=== PATIENT | female | born 2000 | race American Indian/Alaskan Native ===

== ENCOUNTER → 2021-08-09 14:13 | Outpatient (BNVA) | payer OTHER, SELFPAY | PROVIDERS: PCP Nurse Practitioner Family; Visit Provider Nurse Practitioner Family | DX: N39.0 Urinary tract infection, site not specified (principal); E66.9 Obesity, unspecified; F33.9 Major depressive disorder, recurrent, unspecified; J45.909 Unspecified asthma, uncomplicated; Z76.89 Persons encountering health services in other specified circumstances | CPT/HCPCS: 80053; 80061; 84443 ==

== ENCOUNTER → 2021-08-26 11:27 | Outpatient (BNVA) | payer OTHER, SELFPAY | PROVIDERS: PCP Nurse Practitioner Family; Visit Provider Nurse Practitioner Family | DX: F33.9 Major depressive disorder, recurrent, unspecified (principal); E66.9 Obesity, unspecified | CPT/HCPCS: 80053; 80061; 84443 ==

== ENCOUNTER → 2021-09-14 10:23 | Outpatient (BNVA) | payer OTHER, SELFPAY | PROVIDERS: PCP Nurse Practitioner Family; Visit Provider Nurse Practitioner Family | DX: Z32.00 Encounter for pregnancy test, result unknown (principal); N39.0 Urinary tract infection, site not specified; N91.1 Secondary amenorrhea; Z30.42 Encounter for surveillance of injectable contraceptive; Z30.46 Encounter for surveillance of implantable subdermal contraceptive | CPT/HCPCS: 84702 ==

== ENCOUNTER 2021-09-15 13:47 | Emergency (ER) | payer OTHER, SELFPAY ==
[2021-09-15 14:07] VITALS: BP 123/87; PULSE 97; RESP 16; TEMP 36.7; O2SAT 98
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
[2021-09-15 15:53] LABS: Add Urine Microscopic? YES; Bilirubin Urine Neg (Negative); Blood Urine Neg (Negative); Glucose Urine UA Norm (Normal); Ketones Urine Negative (Negative); Leukocyte Esterase Urine 1+ (Negative); Nitrate Urine Negative (Negative); Protein Urine Neg (Negative); Specific Gravity, Urine 1.025 (1.005-1.030); Urine Appearance SL Hazy (CLEAR); Urine Color Yellow (Yellow); Urobilinogen Urine 1 mg/dL (Negative); pH Urine 6 (5-7)
[2021-09-15 15:54] LABS: Bacteria Urine TRACE /hpf; RBC Urine 0-4 /hpf (0-2)
[2021-09-15 15:55] LABS: Add Urine Culture? No; Calcium Oxalate Crystals Urine >100 /hpf
--- NOTE | 2021-09-17 08:52 | DCPLANNER ---
manager software had message to speak with patient about services at [facility]. manager software called phone number in chart, , unable to speak with patient or leave a voicemail for patient.
== END 2021-09-15 15:49 | disposition home or self-care (01) ==
PROVIDERS: Emergency Provider Emergency Medicine; PCP Nurse Practitioner Family
DX: F39 Unspecified mood [affective] disorder (principal)
CPT/HCPCS: 81001; 81025; 99282